=== PATIENT | female | born 2000 | race African-American/Black ===

== ENCOUNTER 2021-12-12 22:13 | Emergency (ER) | payer OTHER ==
[2021-12-12] MEDS ORDERED: SODIUM CHLORIDE 0.9% IV ONE (22:53)
[2021-12-12] MEDS ORDERED: TRANEXAMIC ACID IV ONE (22:53)
[2021-12-12] MEDS ORDERED: Ibuprofen 800 MG Tab PO ONE (23:19)
[2021-12-12] MEDS ORDERED: Sodium Chloride 0.9% 10 ML Syringe FLUSH PRN (23:33)
== END 2021-12-12 23:50 | disposition home or self-care (01) ==
LOC: FB.ED 22:13
DX: N93.9 Abnormal uterine and vaginal bleeding, unspecified (principal); E66.9 Obesity, unspecified; Z68.44 Body mass index [BMI] 60.0-69.9, adult; Z88.8 Allergy status to other drugs, medicaments and biological substances; Z87.891 Personal history of nicotine dependence
CPT/HCPCS: 36415; 84702; 85018; 96365; 99284; A9270; J3490

== ENCOUNTER 2024-03-18 12:22 | Emergency (ER) | payer OTHER ==
[2024-03-18 13:15] LABS: HEMOGLOBIN 12.3 g/dL (11.4-15.5); MEAN CORPUSCULAR HEMOGLOBIN 27.1 pg (23.9-33.9)
[2024-03-18 13:17] LABS: BASOPHILS ABSOLUTE AUTO 0.1 x10-3/uL (0.0-0.1); BASOPHILS PERCENT AUTO 0.6 % (0.2-1.5); EOSINOPHILS ABSOLUTE AUTO 0.1 x10-3/uL (0.0-0.8); EOSINOPHILS PERCENT AUTO 0.9 % (0.6-8.1); HEMATOCRIT 37.8 % (34.2-48.2); LYMPHOCYTES PERCENT AUTO 29.9 % (18.4-52.1); MEAN CORPUSCULAR HGB CONC 32.5 g/dL (31.9-34.8); MEAN CORPUSCULAR VOLUME 83.2 fL (76.7-100.5); MEAN PLATELET VOLUME 7.6 fL (7.1-12.4); MONOCYTES ABSOLUTE AUTO 0.6 x10-3/uL (0.3-1.0); MONOCYTES PERCENT AUTO 5.8 % (4.4-15.7); NEUTROPHILS ABSOLUTE AUTO 6.2 x10-3/uL (1.5-6.3); NEUTROPHILS PERCENT AUTO 62.8 % (30.8-76.2); PLATELET COUNT,PLT 335 x10(3)uL (151-488); RED BLOOD CELL COUNT 4.55 x10(6)uL (3.60-5.20); WHITE BLOOD CELL COUNT,WBC 9.9 x10-3/uL (3.0-10.3)
[2024-03-18 13:22] LABS: BLOOD UREA NITROGEN,BUN 10 mg/dL (7-18); BUN/CREATININE RATIO 12.5 (9-20); CALCIUM 8.6 mg/dL (8.6-10.2); CARBON DIOXIDE,CO2 28 mmol/L (21-32); CHLORIDE,CL 103 mmol/L (100-110); CREATININE 0.8 mg/dL (0.55-1.02); EST CRCL DRUG DOSING (CG) 102.39 mL/min; ESTIMATED GFR 106 mL/min (>60); GLUCOSE RANDOM 100 mg/dL (80-116); SODIUM,NA 139 mmol/L (135-145)
[2024-03-18] MEDS: Sodium Chloride 0.9% 1,000 ML IV SCH (13:27)
[2024-03-18 13:28] LABS: A/G RATIO 0.7; ALANINE AMINOTRANSFERASE,ALT 29 U/L (12-36); ALKALINE PHOSPHATASE 86 IU/L (56-112); ASPARTATE AMNIOTRANSFERASE,AST 16 IU/L (5-25); BILIRUBIN TOTAL 0.3 mg/dL (0.1-1.3); PROTEIN TOTAL,TP 7.6 g/dL (6.0-8.0)
[2024-03-18] MEDS: Ketorolac 30 MG/ML SDV IVPUSH ONE (13:37)
[2024-03-18] MEDS: diphenhydrAMINE 50 MG/ML SDV IVPUSH ONE (13:47)
[2024-03-18 14:13] LABS: APPEARANCE,URINE CLOUDY (CLEAR); BILIRUBIN,URINE NEGATIVE (NEGATIVE); COLOR,URINE YELLOW (YELLOW); GLUCOSE,URINE NORMAL (NORMAL); KETONES,URINE NEGATIVE (NEGATIVE); LEUKOCYTE ESTERASE,URINE LARGE (NEGATIVE); NITRITE,URINE NEGATIVE (NEGATIVE); OCCULT BLOOD,URINE LARGE (NEGATIVE); PROTEIN,URINE TRACE mg/dL (NEGATIVE); UROBILINOGEN,URINE NORMAL (NEGATIVE)
[2024-03-18 14:14] LABS: BACTERIA,URINE MODERATE (NS); RBC,URINE >100 (0-5); SQUAMOUS EPITHELIAL CELLS,UR FEW (NS,R,O); WBC,URINE >100 (0-5)
[2024-03-18] MEDS: hydrALAZINE 20 MG/ML SDV IVPUSH ONE ×2 (15:20→16:14)
== END 2024-03-18 17:40 | disposition home or self-care (01) ==
LOC: FB.ED 12:22
DX: O16.5 Unspecified maternal hypertension, complicating the puerperium (principal); O99.215 Obesity complicating the puerperium; E66.9 Obesity, unspecified; Z90.49 Acquired absence of other specified parts of digestive tract; Z79.84 Long term (current) use of oral hypoglycemic drugs; Z79.899 Other long term (current) drug therapy; Z88.8 Allergy status to other drugs, medicaments and biological substances
CPT/HCPCS: 36415; 80053; 81001; 85025; 87086; 87088; 87186; 96361; 96374; 96375; 96376; 99284; 99284-25; J0360; J1200; J1885; J7030

== ENCOUNTER 2024-12-13 15:54 | Emergency (ER) | payer OTHER ==
[2024-12-13] MEDS: Acetaminophen/oxyCODONE 325-5 MG Tab PO STA (16:21)
[2024-12-13] MEDS: Cyclobenzaprine 10 MG Tab PO ONE (16:21)
[2024-12-13] MEDS: Ketorolac 30 MG/ML SDV IM STA (16:21)
== END 2024-12-13 17:07 | disposition home or self-care (01) ==
LOC: FB.ED 15:54
DX: M51.360 Other intervertebral disc degeneration, lumbar region with discogenic back pain only (principal); M54.40 Lumbago with sciatica, unspecified side; Z88.8 Allergy status to other drugs, medicaments and biological substances; Z79.84 Long term (current) use of oral hypoglycemic drugs; Z79.899 Other long term (current) drug therapy
CPT/HCPCS: 96372; 99283; A9270; J1885